=== PATIENT | male | born 1960 | race Caucasian/White ===

== ENCOUNTER 2016-05-20 11:59 | Day surgery (SDC) | payer OTHER ==
[~2016-05-20] VITALS: Ht 167.6 cm; Wt 76.7 kg
[~2016-05-20 11:59] MED LIST: HYDR-3498 PO; IBUP-1542 PO; LEVO500T72 PO; METR250T PO; PANT40TA3 PO
[2016-05-20 14:46] VITALS: Ht 167.6 cm; Wt 76.7 kg
[2016-05-20 15:35] VITALS: BP 143/77; PULSE 79; RESP 18
[2016-05-20] MEDS ORDERED: FENTAnyl 50 MCG/ML VIAL ONE (15:35)
[2016-05-20] MEDS ORDERED: MIDAZOLAM 1 MG/ML 2 ML INJ ONE ×2 (15:35)
[2016-05-20 15:45] VITALS: BP 140/80; PULSE 84; RESP 18
--- NOTE | 2016-05-21 09:07 | GILP ---
DATE OF PROCEDURE: PREOPERATIVE DIAGNOSIS: The patient was referred for screening colonoscopy. PROCEDURE DONE: Colonoscopy with biopsy and removal of a small polyp. POSTOPERATIVE DIAGNOSIS: A 2-mm rectal polyp, removed by biopsy forceps. Sigmoid colon quite fixed with acute angulation due to a previous inguinal hernia repair. The rest of the colon was unremarka ble except for a few scattered diverticula. DESCRIPTION OF PROCEDURE: The patient was put in the left lateral decubitus after obtaining informe d consent. He was sedated with a total of 4 mg IV Versed and 100 mcg of fentanyl. Very carefully a dvanced the Olympus video colonoscope, with some difficulty, through the sigmoid colon due to fixati on and acute angulation due to a previous inguinal hernia repair. A small polyp was removed before even reaching the sigmoid in the rectum. It was only a 2-mm hyperp lastic polyp. Then the scope was slowly advanced all the way to the cecum. Ileocecal valve was identified. The ap pendiceal opening was identified after washing. Then the cecum, ascending colon, transverse colon. A few diverticula were noted scattered from left to right colon. The transverse colon was otherwise unremarkable. The descending colon and sigmoid colon, as mentioned above, the sigmoid colon is fixe d and acutely angulated at the inguinal hernia repair area. The rectum, including retroflexion, othe r than one small polyp that I removed, was unremarkable. Dear Dr. Mikael Lin: The plan will be to see me in 1 to 2 weeks. Await for biopsy report. He wi ll have a repeat colonoscopy in 5 years. Meanwhile I advised him to go on a high-fiber diet and dri nk more fluids. Dictated By: VIN LENZ Conf#: [id number] DID#: [id number] CC: Mikael Lin;*EndCC*
== END 2016-05-20 16:19 | disposition home or self-care (01) ==
LOC: GIL 11:59
PROVIDERS: ATTEND Internal Medicine
DX: Z12.11 Encounter for screening for malignant neoplasm of colon (principal); K62.1 Rectal polyp
CPT/HCPCS: 45380; J2250; J3010; Z7610; 88305